=== PATIENT | male | born 1965 | race Caucasian/White ===

== ENCOUNTER 2024-05-02 16:10 | Emergency (ER) | payer OTHER, BC, SELFPAY ==
[2024-05-02] VITALS (7 sets, daily range): BP systolic 116–138; BP diastolic 72–82; PULSE 60–76; RESP 18–20; TEMP 36.6–37.1; O2SAT 99–100; BMI 29.5
--- NOTE | 2024-05-02 16:10 | PC.NURSE ---
trauma alert called
--- NOTE | 2024-05-02 16:16 | PC.NURSE ---
canceled the trauma alert.
--- NOTE | 2024-05-02 16:17 | XR_ITS ---
PROCEDURE INFORMATION: Exam: XR Pelvis Exam date and time: 05/02/2024 5:16 PM Age: 58 years old Clinical indication: Injury or trauma; Fall; Blunt trauma (contusions or hematomas); Bilateral; Pelvic region TECHNIQUE: Imaging protocol: Radiologic exam of the pelvis. Views: 1 or 2 view. COMPARISON: CT ANGIO ABDOMEN PELVIS 05/02/2024 5:14 PM FINDINGS: Bones/joints: Postoperative change involving the lumbar spine. Mild degenerative change. No acute fracture or dislocation. New line Soft tissues: Unremarkable. Organs: Contrast material within the urinary bladder. IMPRESSION: No acute osseous abnormality.
--- NOTE | 2024-05-02 16:17 | XR_ITS ---
PROCEDURE INFORMATION: Exam: XR Chest Exam date and time: 05/02/2024 5:16 PM Age: 58 years old Clinical indication: Injury or trauma; Fall; Blunt trauma (contusions or hematomas) TECHNIQUE: Imaging protocol: Radiologic exam of the chest. Views: 1 view. COMPARISON: CT ANGIO CHEST 05/02/2024 5:14 PM FINDINGS: Lungs: Unremarkable. No consolidation. Pleural spaces: Unremarkable. No pleural effusion. No pneumothorax. Heart/Mediastinum: Unremarkable. No cardiomegaly. Bones/joints: Unremarkable. IMPRESSION: No acute findings.
--- NOTE | 2024-05-02 16:18 | CT_ITS ---
PROCEDURE INFORMATION: Exam: CTA Abdomen and Pelvis With Contrast Exam date and time: 05/02/2024 5:14 PM Age: 58 years old Clinical indication: Injury or trauma; Additional info: Trauma, critical injury suspected TECHNIQUE: Imaging protocol: Computed tomographic angiography of the abdomen and pelvis with contrast. Exam focused on the arteries. 3D rendering (Not supervised by radiologist): MIP and/or 3D reconstructed images were created by the technologist. Radiation optimization: All CT scans at this facility use at least one of these dose optimization techniques: automated exposure control; mA and/or kV adjustment per patient size (includes targeted exams where dose is matched to clinical indication); or iterative reconstruction. Contrast material: ISO 370; Contrast volume: 80 ml; Contrast route: INTRAVENOUS (IV); COMPARISON: CT BONY PELVIS 05/02/2024 5:03 PM FINDINGS: Aorta: No abdominal aortic aneurysm. No dissection. No rupture.. Celiac trunk and mesenteric arteries: No occlusion or significant stenosis. Renal arteries: No occlusion or significant stenosis. Right iliac arteries: No occlusion or significant stenosis. Left iliac arteries: No occlusion or significant stenosis. Liver: No mass. There is no liver laceration present. No cirrhosis. Gallbladder and biliary ducts: Unremarkable. No calcified stones. No ductal dilation. Pancreas: No pancreatic ductal dilation. There is no laceration present. Spleen: There is no splenic laceration present. No splenomegaly. Adrenal glands: Normal. No mass. No laceration. Kidneys and ureters: No hydronephrosis. There is no renal laceration present. Stomach and bowel: Thickening of the wall of the distal ileum with adjacent fat stranding. Mild diffuse thickening of the wall of the colon. Appendix: No evidence of appendicitis. Intraperitoneal space: Unremarkable. No free air. No significant fluid collection. Lymph nodes: Unremarkable. No enlarged lymph nodes. Urinary bladder: Unremarkable. No mass. Reproductive: Unremarkable as visualized. Bones/joints: Postsurgical changes from disc replacements at L4-L5 and L5-S1 impression. Acute fractures of the right L1-L3 transverse processes. . No dislocation. Soft tissues: Tarlov cysts within the sacrum. IMPRESSION: 1. Acute fractures of the right L1-L3 transverse processes. 2. No significant traumatic injury to the abdomen or pelvis. 3. Mild inflammation of the distal ileum and colon.
--- NOTE | 2024-05-02 16:18 | CT_ITS ---
PROCEDURE INFORMATION: Exam: CT Head Without Contrast Exam date and time: 05/02/2024 4:49 PM Age: 58 years old Clinical indication: Injury or trauma; Additional info: Trauma, critical injury suspected TECHNIQUE: Imaging protocol: Computed tomography of the head without contrast. Radiation optimization: All CT scans at this facility use at least one of these dose optimization techniques: automated exposure control; mA and/or kV adjustment per patient size (includes targeted exams where dose is matched to clinical indication); or iterative reconstruction. COMPARISON: No relevant prior studies available. FINDINGS: Brain: Normal. No hemorrhage. Unremarkable white matter. No mass effect. Cerebral ventricles: No ventriculomegaly. Paranasal sinuses: Moderate paranasal sinus disease. Mastoid air cells: Visualized mastoid air cells are well aerated. Bones: No acute calvarial fracture. Facial bones are better evaluated on dedicated exam. Soft tissues: Unremarkable. IMPRESSION: No acute intracranial abnormality.
--- NOTE | 2024-05-02 16:18 | CT_ITS ---
PROCEDURE INFORMATION: Exam: CT Lumbar Spine Without Contrast Exam date and time: 05/02/2024 5:00 PM Age: 58 years old Clinical indication: Injury or trauma; Additional info: Trauma, critical injury suspected TECHNIQUE: Imaging protocol: Computed tomography of the lumbar spine without contrast. Radiation optimization: All CT scans at this facility use at least one of these dose optimization techniques: automated exposure control; mA and/or kV adjustment per patient size (includes targeted exams where dose is matched to clinical indication); or iterative reconstruction. COMPARISON: CT THORACIC SPINE WO CON 05/02/2024 4:57 PM FINDINGS: Bones/joints: Interbody fusion L4-L5 and L5-S1. Vertebral body height and AP alignment is preserved. Mild prevertebral osteophytosis. Low-level facet joint degenerative change. No definite significant central canal stenosis within limitations of technique and artifact. Fractures involving the right transverse processes of L1, L2 and L3 ranging from nondisplaced to mildly displaced. There is large sacral Tarlov cyst with adjacent osseous remodeling. Vasculature: Vascular calcification. Soft tissues: Unremarkable. IMPRESSION: Fractures involving the right transverse processes of L1, L2 and L3 ranging from nondisplaced to mildly displaced.
--- NOTE | 2024-05-02 16:18 | CT_ITS ---
PROCEDURE INFORMATION: Exam: CTA Neck With Contrast Exam date and time: 05/02/2024 5:10 PM Age: 58 years old Clinical indication: Injury or trauma; Additional info: Trauma, critical injury suspected TECHNIQUE: Imaging protocol: Computed tomographic angiography of the neck with contrast. Exam focused on the cervical segments of the vasculature. 3D rendering (Not supervised by radiologist): MIP and/or 3D reconstructed images were created by the technologist. Radiation optimization: All CT scans at this facility use at least one of these dose optimization techniques: automated exposure control; mA and/or kV adjustment per patient size (includes targeted exams where dose is matched to clinical indication); or iterative reconstruction. Contrast material: ISOVUE 370; Contrast volume: 80 ml; Contrast route: INTRAVENOUS (IV); COMPARISON: CT CERVICAL SPINE WO CON 05/02/2024 4:55 PM FINDINGS: Limitations: Limited by artifact arising from metallic dental hardware/dental amalgam. Right common carotid artery: No stenosis. No dissection or occlusion. Right internal carotid artery: No stenosis of the extracranial segment. No dissection or occlusion. Right external carotid artery: No occlusion or stenosis of the origin. Left common carotid artery: No stenosis. No dissection or occlusion. Left internal carotid artery: No stenosis of the extracranial segment. No dissection or occlusion. Left external carotid artery: No occlusion or stenosis of the origin. Right vertebral artery: No stenosis. No dissection or occlusion. Left vertebral artery: No stenosis. No dissection or occlusion. Soft tissues: Normal. No significant soft tissue swelling. Bones/joints: No acute fracture. IMPRESSION: No significant vascular pathology. REFERENCES: NASCET CRITERIA. The degree of stenosis in the cervical segment of the internal carotid artery is based on NASCET criteria. Normal is no stenosis. Mild is less than 50% stenosis. Moderate is 50-69% stenosis. Severe is 70% to 99% stenosis. Total occlusion is no detectable patent lumen.
--- NOTE | 2024-05-02 16:18 | CT_ITS ---
PROCEDURE INFORMATION: Exam: CT Maxillofacial Without Contrast Exam date and time: 05/02/2024 4:51 PM Age: 58 years old Clinical indication: Injury or trauma; Additional info: Trauma, critical injury suspected TECHNIQUE: Imaging protocol: Computed tomography of the face without contrast. Radiation optimization: All CT scans at this facility use at least one of these dose optimization techniques: automated exposure control; mA and/or kV adjustment per patient size (includes targeted exams where dose is matched to clinical indication); or iterative reconstruction. COMPARISON: CT HEAD/BRAIN WO CON 05/02/2024 4:49 PM FINDINGS: Limitations: Limited by artifact arising from metallic dental hardware/dental amalgam. Paranasal sinuses: Moderate paranasal sinus disease. Orbital cavities: No orbital hemorrhage. Bones: No acute facial bone fracture. No dislocation. Soft tissues: Unremarkable. IMPRESSION: No acute facial bone fracture.
--- NOTE | 2024-05-02 16:18 | CT_ITS ---
PROCEDURE INFORMATION: Exam: CTA Head With Contrast, Arteriography Exam date and time: 05/02/2024 5:10 PM Age: 58 years old Clinical indication: Injury or trauma; Additional info: Trauma, critical injury suspected TECHNIQUE: Imaging protocol: Computed tomographic angiography of the head with contrast. Exam focused on the arteries. 3D rendering (Not supervised by radiologist): MIP and/or 3D reconstructed images were created by the technologist. Radiation optimization: All CT scans at this facility use at least one of these dose optimization techniques: automated exposure control; mA and/or kV adjustment per patient size (includes targeted exams where dose is matched to clinical indication); or iterative reconstruction. Contrast material: ISOVUE 370; Contrast volume: 80 ml; Contrast route: INTRAVENOUS (IV); COMPARISON: CT HEAD/BRAIN WO CON 05/02/2024 4:49 PM FINDINGS: ANTERIOR CIRCULATION: Right internal carotid artery: Intracranial segment is patent with no significant stenosis. No aneurysm. Right middle cerebral artery: No occlusion or significant stenosis. No aneurysm. Right anterior cerebral artery: No occlusion or significant stenosis. No aneurysm. Left internal carotid artery: Intracranial segment is patent with no significant stenosis. No aneurysm. Left middle cerebral artery: No occlusion or significant stenosis. No aneurysm. Left anterior cerebral artery: No occlusion or significant stenosis. No aneurysm. POSTERIOR CIRCULATION: Right vertebral artery: No occlusion or significant stenosis. No aneurysm. Left vertebral artery: No occlusion or significant stenosis. No aneurysm. Basilar artery: No occlusion or significant stenosis. No aneurysm. Right posterior cerebral artery: No occlusion or significant stenosis. No aneurysm. Left posterior cerebral artery: No occlusion or significant stenosis. No aneurysm. IMPRESSION: No significant vascular pathology.
--- NOTE | 2024-05-02 16:18 | CT_ITS ---
PROCEDURE INFORMATION: Exam: CTA Chest With Contrast Exam date and time: 05/02/2024 5:14 PM Age: 58 years old Clinical indication: Injury or trauma; Additional info: Trauma, critical injury suspected TECHNIQUE: Imaging protocol: Computed tomographic angiography of the chest with contrast. Exam focused on the arteries. 3D rendering (Not supervised by radiologist): MIP and/or 3D reconstructed images were created by the technologist. Radiation optimization: All CT scans at this facility use at least one of these dose optimization techniques: automated exposure control; mA and/or kV adjustment per patient size (includes targeted exams where dose is matched to clinical indication); or iterative reconstruction. Contrast material: ISOVUE 370; Contrast volume: 80 ml; Contrast route: INTRAVENOUS (IV); COMPARISON: CT ANGIO ABDOMEN PELVIS 05/02/2024 5:14 PM FINDINGS: Pulmonary arteries: Normal. No pulmonary emboli. Aorta: Unremarkable. No aortic aneurysm. No aortic dissection. Lungs: Unremarkable. No consolidation. No masses. Pleural spaces: Unremarkable. No pneumothorax. No pleural effusion. Heart: Unremarkable. No cardiomegaly. No pericardial effusion. Mediastinal space: There no mediastinal hematoma. Lymph nodes: Unremarkable. No enlarged lymph nodes. Bones/joints: No acute fracture. Soft tissues: Unremarkable. IMPRESSION: 1. No evidence for a pulmonary embolism, aortic dissection, aortic aneurysm, or underlying pneumonia. 2. There is no significant traumatic injury seen.
--- NOTE | 2024-05-02 16:18 | CT_ITS ---
PROCEDURE INFORMATION: Exam: CT Cervical Spine Without Contrast Exam date and time: 05/02/2024 4:55 PM Age: 58 years old Clinical indication: Injury or trauma; Additional info: Trauma, critical injury suspected TECHNIQUE: Imaging protocol: Computed tomography of the cervical spine without contrast. Radiation optimization: All CT scans at this facility use at least one of these dose optimization techniques: automated exposure control; mA and/or kV adjustment per patient size (includes targeted exams where dose is matched to clinical indication); or iterative reconstruction. COMPARISON: CT FACIAL BONES WO CON 05/02/2024 4:51 PM FINDINGS: Bones: Vertebral body height and AP alignment is preserved. Mild degenerative change about the dens. There are facet joint degenerative changes. No acute cervical spine fracture. No definite significant central canal stenosis within limitations of technique. Lungs: Lung apices are normal. Pleural spaces: No visible pneumothorax. Soft tissues: Unremarkable. IMPRESSION: No acute cervical spine fracture.
--- NOTE | 2024-05-02 16:18 | CT_ITS ---
PROCEDURE INFORMATION: Exam: CT Thoracic Spine Without Contrast Exam date and time: 05/02/2024 4:57 PM Age: 58 years old Clinical indication: Injury or trauma; Additional info: Trauma, critical injury suspected TECHNIQUE: Imaging protocol: Computed tomography of the thoracic spine without contrast. Radiation optimization: All CT scans at this facility use at least one of these dose optimization techniques: automated exposure control; mA and/or kV adjustment per patient size (includes targeted exams where dose is matched to clinical indication); or iterative reconstruction. COMPARISON: CT CERVICAL SPINE WO CON 05/02/2024 4:55 PM FINDINGS: Bones/joints: Vertebral body height and AP alignment is preserved. No acute thoracic spine fracture. No osseous destruction. Soft tissues: Unremarkable. Pleural spaces: No visible pneumothorax. IMPRESSION: No acute thoracic spine fracture.
--- NOTE | 2024-05-02 16:18 | CT_ITS ---
PROCEDURE INFORMATION: Exam: CT Pelvis Without Contrast, Skeleton Exam date and time: 05/02/2024 5:03 PM Age: 58 years old Clinical indication: Injury or trauma; Additional info: Trauma, critical injury suspected TECHNIQUE: Imaging protocol: Computed tomography of the pelvis without contrast. Exam focused on the skeleton. Radiation optimization: All CT scans at this facility use at least one of these dose optimization techniques: automated exposure control; mA and/or kV adjustment per patient size (includes targeted exams where dose is matched to clinical indication); or iterative reconstruction. COMPARISON: CT LUMBAR SPINE WO CON 05/02/2024 5:00 PM FINDINGS: Vasculature: Vascular calcification. Bones/joints: There is large sacral Tarlov cysts with adjacent osseous remodeling. Cyst measures up to 5.5 cm in cc dimension. Previous fusion L4-L5 and L5-S1. No acute fracture or dislocation. Soft tissues: Small fat containing umbilical hernia. IMPRESSION: No acute osseous abnormality.
[2024-05-02 16:25] LABS: Basophils # 0.1 K/mm3 (0-0.2); Chloride 106 mmol/L (98-107); Eosinophils # 0.4 K/mm3 (0.0-0.4); Eosinophils % 3.7 % (0.1-12.0); Hematocrit 45.6 % (42.0-52.0); Hemoglobin 15.9 g/dL (14.1-18.0); Lymphocytes # 4.5 K/mm3 (0.7-4.5); Lymphocytes % 38.2 % (10-50); Mean Corpuscular HGB Conc 34.9 g/dL (31.8-35.4); Mean Corpuscular Hemoglobin 32.3 pg (27.0-31.2); Mean Corpuscular Volume 92.7 fl (80-94); Monocytes # 0.5 K/mm3 (0.1-1.0); Monocytes % 4.2 % (1.7-9.3); Neutrophils # 6.2 K/mm3 (1.8-7.8); Neutrophils % 52.8 % (37.0-80.0); Platelet Count 308 K/mm3 (142-424); Red Blood Count 4.93 M/mm3 (4.60-6.20); Red Cell Distribution Width 13.8 % (11.5-17.5); White Blood Count 11.8 K/mm3 (4.8-10.8)
[2024-05-02 16:26] LABS: Albumin Level 4.7 g/dl (3.5-5.0); Potassium 3.8 mmoL/L (3.5-5.1); Sodium 140 mmol/L (136-145)
[2024-05-02 16:28] LABS: Alanine Aminotransferase 41 U/L (12-78); Anion Gap 16.8 mEq/L (5-15); Aspartate Amino Transferase 34 U/L (17-59); Blood Urea Nitrogen 17 mg/dl (9-20); Carbon Dioxide 21 mmol/L (22.0-30.0); Creatinine Clearance Estimated 119 mL/min (50-200); Estimated Glomerular Filt Rate 77 ml/min (>60); GFR (African American) 93 ML/MIN (>60)
[2024-05-02 16:29] LABS: Albumin/Globulin Ratio 1.7 (1.1-1.8); Alkaline Phosphatase 57 U/L (38-126); Bilirubin,Total 0.6 mg/dl (0.2-1.3); Calcium 9.7 mg/dl (8.4-10.2); Globulin 2.8 g/dL (1.3-3.2); Glucose 134 mg/dl (74-100); Total Protein,Serum 7.5 g/dl (6.3-8.2)
[2024-05-02] MEDS: MORPHINE 4MG/ML SYRINGE 4 MG IV (16:30)
[2024-05-02] MEDS: ONDANSETRON 4MG/2ML VIAL 4 MG IV ×2 (16:30→19:29)
[2024-05-02] MEDS: SODIUM CHLORIDE 0.9% 10ML FLUSH SYRINGE 10 ML IV (16:30)
--- NOTE | 2024-05-02 16:30 | ED_ITS ---
Discharge Plan Disposition Patient Disposition: Home, Self-Care Condition: Good Prescriptions Prescriptions: New hydrocodone-acetaminophen 5-325 mg tablet 1 tab PO Q8H PRN (Reason: pain) Qty: 12 0RF ketorolac 10 mg tablet 10 mg PO Q8H PRN (Reason: pain) 3 Days Qty: 12 0RF lidocaine [Lidoderm] 5 % adhesive patch,medicated 1 patch topical DAILY Qty: 15 0RF Rx Instructions: leave on most painful area for up to 12 hrs methocarbamol 750 mg tablet 750 mg PO Q8H PRN (Reason: pain) Qty: 20 0RF ondansetron 4 mg tablet,disintegrating 4 mg PO Q8H PRN (Reason: nausea and vomiting) 4 Days Qty: 12 0RF senna 8.6 mg capsule 8.6 mg PO HS PRN (Reason: constipation) Qty: 30 0RF Referrals Follow up/Referrals: Noble Woods MD [Primary Care Provider] - See instructions Activity Restrictions/Add. Instructions Additional Instructions/Restrictions: You were evaluated in the emergency department today. Please follow-up outpatient with your primary care provider. I also have arranged outpatient follow-up with spine for you. occupational rehabilitation aide your prescription for pain medication and take as needed for severe pain. Toradol is an NSAID, so do not take ibuprofen or other NSAIDs with this medication. [place] contains acetaminophen, so make sure you are not exceeding 3 g of acetaminophen or Tylenol in 1 day. Alternatively, you may take Tylenol and ibuprofen every 4-6 hours at home as needed for pain. I have also provided you with a mild muscle relaxer, Robaxin. I also provided you with Zofran in case medications cause nausea and vomiting as well as send in case the medications cause constipation. [facility] should be in contact with you to help arrange an appointment next week for follow-up with orthospine. I have provided them with your information, and we have provided you with a disc with imaging. Keep your scalp wound clean and dry. Krystal need to be removed in 8 to 10 days. Do not submerge under any water. Return to the emergency department for new or worsening symptoms, such as significant worsening of pain, new numbness or tingling, urinary incontinence, fecal incontinence, or other concerns. Clinical Impressions Clinical Impression: Lumbar transverse process fracture, Hematoma of scalp, Laceration of scalp, Injury resulting from fall from height Stand Alone Forms Stand Alone Forms: Work/School Release Instructions Patient Instructions: DI for Vertebral Fracture Print Language Print Language: Polish Discharge ED Provider: Devora Cook General Adult HPI General Stated complaint: fall Time Seen by Provider: 05/02/24 16:17 History of Present Illness HPI narrative: This patient is a 58-year-old with a history of prior spine surgery, hypertension, and Crohn's disease not on immune modulators presenting to the emergency department for evaluation with concern for traumatic injuries from a fall from about 12 feet high. Patient was in the scaffolding's of a [employer] shop when he lost his balance and fell about 12 feet. He hit the left side of his head but did not lose consciousness. He has left-sided facial pain, laceration to his left head, low back pain, right florez pain. No vision changes, numbness, tingling, chest pain, abdominal pain, or other concerns. He arrives POV and has been ambulatory since, though he has pain with walking and feels nauseated if he tries to walk. No blood thinners or aspirin. He was well prior to the fall. Related Data Previous Rx's ?Medication ?Instructions ?Recorded hydrocodone 5 mg-acetaminophen 325 1 tab PO Q8H PRN pain #12 tabs 05/02/24 mg tablet ketorolac 10 mg tablet 10 mg PO Q8H PRN pain 3 days #12 05/02/24 tabs lidocaine 5 % topical patch 1 patch topical DAILY #15 ea 05/02/24 (Lidoderm) methocarbamol 750 mg tablet 750 mg PO Q8H PRN pain #20 tabs 05/02/24 ondansetron 4 mg disintegrating 4 mg PO Q8H PRN nausea and 05/02/24 tablet vomiting 4 days #12 tabs sennosides 8.6 mg capsule (senna) 8.6 mg PO HS PRN constipation #30 05/02/24 caps Allergies Allergy/AdvReac Type Severity Reaction Status Date / Time No Known Allergies Allergy Verified 05/02/24 16:26 [facility] Disclaimer: The information contained in this section may have been updated after the patient was seen, as this information can be updated by other users. Social History Smoking Status: Never smoker alcohol intake: never current occupational status: employed ROS Obtained: Yes All systems reviewed & no additional complaints except as documented Physical Exam General General appearance: alert and in no apparent distress Head Head exam: other (Left temporal tenderness to palpation, swelling. Laceration to the left parietal scalp. Hematoma to left parietal scalp. No appreciable step-offs or deformities) Eye Eye exam: Present normal appearance, PERRL and EOMI ENT ENT exam: Present normal exam, normal oropharynx, mucous membranes moist and normal external ear exam Neck Neck exam: Present trachea midline and other (C-collar in place); Absent tenderness Chest Chest inspection: Present normal inspection and symmetric chest wall rise; Absent tenderness Respiratory Respiratory exam: Present normal lung sounds bilaterally; Absent respiratory distress, wheezes, stridor or accessory muscle use Cardiovascular Cardiovascular exam: Present regular rate and normal rhythm Abdominal Exam Abdominal exam: Present soft; Absent distention, tenderness, guarding, rebound or rigidity Extremities Exam Extremities exam: Present full ROM, tenderness, normal capillary refill and other (Tenderness and abrasion to the right anterior lower leg); Absent edema Back Exam Back exam: Present tenderness (Low back. Scattered abrasions and bruising) Neurological Exam Neurological exam: Present alert, oriented X3 and CN II-XII intact; Absent normal gait (Antalgic gait) or motor sensory deficit Psychiatric Psychiatric exam: Present normal affect and normal mood Skin Skin exam: Present warm and dry Medical Decision Making Medical Records Medical records reviewed: Yes I reviewed the patient's medical records. Screening: Per USPSTF and CDC recommendations, given the prevalence of disease in our region, it is our hospital?s policy to screen for HIV and viral Hepatitis for all patients aged 18 and over and those with ongoing risk factors. Mac Inquiry Pt receiving controlled substance: Yes Mac was queried for this patient: Yes Risks and benefits of using a controlled substance: were discussed with pt by me Vital Signs: 05/02/24 16:14 05/02/24 16:17 05/02/24 16:30 Temperature 97.8 F Temperature Source Oral Pulse Rate 60 Pulse Rate [Left Radial] 60 Respiratory Rate 18 Blood Pressure 138/78 116/73 Blood Pressure [Right Arm] 116/73 Blood Pressure Mean Blood Pressure Mean [Right Arm] 87 Blood Pressure Source Manual Cuff/ Auscultation 02 Sat by Pulse Oximetry 99 99 Oxygen Delivery Method Room Air 05/02/24 18:01 05/02/24 18:30 05/02/24 19:00 Temperature Temperature Source Pulse Rate 60 76 Pulse Rate [Left Radial] Respiratory Rate Blood Pressure 122/77 135/82 126/72 Blood Pressure [Right Arm] Blood Pressure Mean 84 Blood Pressure Mean [Right Arm] Blood Pressure Source 02 Sat by Pulse Oximetry 99 99 Oxygen Delivery Method 05/02/24 19:42 Temperature 98.7 F Temperature Source Pulse Rate 68 Pulse Rate [Left Radial] Respiratory Rate 20 Blood Pressure 126/72 Blood Pressure [Right Arm] Blood Pressure Mean Blood Pressure Mean [Right Arm] Blood Pressure Source 02 Sat by Pulse Oximetry Oxygen Delivery Method Room Air Lab Data Lab results reviewed: Yes I reviewed the patient's lab results. Lab Results 05/02/24 16:15: WBC 11.8 H, RBC 4.93, Hgb 15.9, Hct 45.6, MCV 92.7, MCH 32.3 H, MCHC 34.9, RDW 13.8, Plt Count 308, MPV 7.0 L, Neut % (Auto) 52.8, Lymph % (Auto) 38.2, [place] % (Auto) 4.2, Eos % (Auto) 3.7, Baso % (Auto) 1.0, Neut # (Auto) 6.2, Lymph # (Auto) 4.5, [place] # (Auto) 0.5, Eos # (Auto) 0.4, Baso # (Auto) 0.1, PT 10.7, INR 0.95, APTT 23.1, Sodium 140, Potassium 3.8, Chloride 106, Carbon Dioxide 21 L, Anion Gap 16.8 H, BUN 17, Creatinine 1.00, Estimated Creat Clear 119, Estimated GFR 77, Est GFR ( Amer) 93, Glucose 134 H, Calcium 9.7, Total Bilirubin 0.6, AST 34, ALT 41, Alkaline Phosphatase 57, Total Protein 7.5, Albumin 4.7, Globulin 2.8, Albumin/Globulin Ratio 1.7 05/02/24 18:20: Urine Color Yellow, Urine Appearance Clear, Urine pH 6.5, Ur Specific [place] 1.015, Urine Protein Negative, Urine Glucose (UA) Negative, Urine Ketones Negative, Urine Blood Negative, Urine Nitrate Negative, Urine Bilirubin Negative, Urine Urobilinogen 0.2, Ur Leukocyte Esterase Negative, Urine RBC None, Urine WBC None, Ur Squamous Epith Cells None, Urine Bacteria None 05/02/24 16:15 05/02/24 16:15 Orders (Tests/Meds): ED MEDICATIONS Discontinued Medications Generic Name Dose Route Start Last Admin Trade Name Ned PRN Reason Stop Dose Admin Bacitracin 1 each 05/02/24 18:43 05/02/24 19:28 Bacitracin Oint 0.9gm Udp TP 05/02/24 18:44 1 each ONCE ONE Administration Iopamidol 160 ml 05/02/24 17:13 05/02/24 17:14 Iopamidol-370 (76%);100ml Bottle IV 05/02/24 17:14 160 ml ONCE ONE Administration Ketorolac Tromethamine 15 mg 05/02/24 18:33 05/02/24 18:43 Ketorolac 30mg/Ml Vial IV 05/02/24 18:34 15 mg ONCE ONE Administration Lidocaine 1 each 05/02/24 18:35 05/02/24 18:44 Lidocaine 5% Transdermal Patch TP 05/02/24 18:36 1 each ONCE ONE Administration Methocarbamol 500 mg 05/02/24 19:26 05/02/24 19:29 Methocarbamol 500mg Tablet PO 05/02/24 19:27 500 mg ONCE ONE Administration Morphine Sulfate 4 mg 05/02/24 16:18 05/02/24 16:30 Morphine 4mg/Ml Syringe IV 05/02/24 16:19 4 mg ONCE ONE Administration Ondansetron HCl 4 mg 05/02/24 16:18 05/02/24 16:30 Ondansetron 4mg/2ml Vial IV 05/02/24 16:19 4 mg ONCE ONE Administration Ondansetron HCl 4 mg 05/02/24 19:26 05/02/24 19:29 Ondansetron 4mg/2ml Vial IV 05/02/24 19:27 4 mg ONCE ONE Administration Oxycodone HCl 5 mg 05/02/24 18:33 05/02/24 18:43 Oxycodone 5mg Immediate Release Tablet PO 05/02/24 18:34 5 mg ONCE ONE Administration Sodium Chloride 10 ml 05/02/24 16:17 05/02/24 16:30 Sodium Chloride 0.9% 10ml Flush Syringe IV 06/01/24 16:16 10 ml NEEDED PRN Administration Maintain IV Site Sodium Chloride 80 ml 05/02/24 17:13 05/02/24 17:14 0.9 % Sodium Chloride 50 Ml Vial IV 05/02/24 17:14 80 ml ONCE ONE Administration Sodium Chloride 10 ml 05/02/24 17:13 05/02/24 17:14 Sodium Chloride 0.9% 10ml Syr (Rad Only) IV 06/01/24 17:12 10 ml NEEDED PRN Administration Maintain IV Site ORDERS Category Date Time Status CT angio abdomen pelvis Stat Cat Scan 05/02/24 16:[address] angio chest - dissection Stat Cat Scan 05/02/24 16:[address] angio head Stat Cat Scan 05/02/24 16:[address] angio neck Stat Cat Scan 05/02/24 16:[address] bony pelvis Stat Cat Scan 05/02/24 16:[address] cervical spine wo con Stat Cat Scan 05/02/24 16:[address] facial bones wo con Stat Cat Scan 05/02/24 16:[address] head/brain wo con Stat Cat Scan 05/02/24 16:[address] lumbar spine wo con Stat Cat Scan 05/02/24 16:[address] thoracic spine wo con Stat Cat Scan 05/02/24 16:18 Completed Ankle XR -Right minimum 3 Views [XR ankle RT min 3V] Exams 05/02/24 16:43 Completed Stat POCUS Point of Care (ER Only) Stat Exams 05/02/24 16:10 Taken Tibia/fibula XR right 2 views [XR tibia fibula RT 2V] Exams 05/02/24 16:43 Completed Stat XR chest portable Stat Exams 05/02/24 16:17 Completed XR pelvis 1-2V Stat Exams 05/02/24 16:17 Completed Activated Partial Thrombo Time Stat Lab 05/02/24 16:15 Completed Complete Blood Count Auto Diff Stat Lab 05/02/24 16:15 Completed Comprehensive Metabolic Panel Stat Lab 05/02/24 16:15 Completed Prothrombin Time INR Stat Lab 05/02/24 16:15 Completed Urinalysis and Microscopic Stat Lab 05/02/24 18:20 Completed Medical Decision Narrative: In summary, this patient is a 58-year-old male presenting to the Emergency Department for evaluation of fall from 12 feet high. Differential diagnoses considered include but are not limited to head trauma, chest trauma, abdominal trauma, polytrauma. Ruling out the most morbid conditions drove assessment. It should be noted patient's history includes hypertension which may or may not be at goal therapy. This complicates all aspects of care by increasing patient's risk for morbidity. The patient ambulated into the emergency department, though with antalgic gait. On exam, he has left-sided head injury, low back tenderness, right florez tenderness. He is hemodynamically stable. He is neurovascularly intact in all 4 extremities and is neurologically intact. He has a laceration to the left scalp. He is up-to-date on tetanus with last tetanus shot in 2021. I performed bedside E FAST exam which was negative. Unfortunately, our ultrasound did not save images. Workup included trauma labs and trauma CT scans with contrast. Patient was given IV morphine and Zofran for symptomatic improvement of pain. I independently interpreted x-ray prior to the radiologist read and noted no acute fracture. Please see their read for final interpretation. Labs were obtained that demonstrated mild leukocytosis in the setting of trauma. Labs are otherwise reassuring. CT scans demonstrated fractures of the L1, 2, and 3 transverse processes but no other acute traumatic injury. He did have mild colon inflammation in the setting of Crohn's disease, but he denies any abdominal pain or other complaints. He already has close follow-up outpatient arranged for this with scope planned Saturday. His scalp laceration was repaired with krystal after thorough irrigation. He was given instructions for wound care. I called for spine consult to help arrange outpatient follow-up given his spine fractures. He is neurologically intact. He was given oral oxycodone, IV Toradol, topical Lidoderm patch for symptomatic improvement of pain. On reassessment, the patient jorge neurologically intact. I had an interactive discussion with Dr. Ledesma with orthopedic spine as well as Dr. Eubanks the transfer center at who advised they would help arrange outpatient follow-up with the patient over the next 2 weeks. Patient was notified of this and provided with a disc with imaging. He was able to ambulate throughout the emergency department out significant issue. Ultimately based on reassuring workup and exam, I feel it is appropriate for discharge home with instructions for wound care, close follow-up with spine, and very strict return precautions. He was discharged with prescription for [place] to take as needed for severe pain. Strict return precautions were given and he was discharged after all questions were answered. Procedures Risk/Benefits of Procedure(s) Were Explained: Yes Laceration Laceration 1: Site: scalp Side (If applicable): left Size (cm): 3 Description: flap Depth: simple, single layer Pre-repair: wound explored, irrigated extensively and deep structures intact Skin layer closed with: other (krystal x 3) Limited Ultrasound Findings:: Limited EFAST ultrasound Indication: Blunt trauma Views: [LUQ, RUQ, Pelvis, Limited Cardiac, Limited Thoracic] Interpretation: Peritoneal Free Fluid: Absent Pericardial effusion: Absent Right thoracic free Fluid: Absent Left thoracic Free Fluid: Absent Right lung pneumothorax: Absent Left Lung pneumothorax: Absent Impression: Negative EFAST ultrasound Images were not saved to permanent archive The study was technically adequate CPT 83656-44 (limited cardiac) 77903-03 (limited abdominal) 81946-66 (chest) This study was performed by me, and I personally interpreted all images/videos. Based on my clinical judgement, these images were adequate and did not necessitate further imaging. Critical Care Critical Care Time Critical Care Time: No
--- NOTE | 2024-05-02 16:43 | XR_ITS ---
PROCEDURE INFORMATION: Exam: XR Right Ankle Exam date and time: 05/02/2024 5:16 PM Age: 58 years old Clinical indication: Injury or trauma; Fall; Blunt trauma; Ankle; Right; Additional info: Fall, pain TECHNIQUE: Imaging protocol: Radiologic exam of the right ankle. Views: 3 or more views. COMPARISON: CR XR ANKLE RT MIN 3V 05/02/2024 5:16 PM FINDINGS: Bones/joints: Normal. Soft tissues: Normal. IMPRESSION: No acute findings.
--- NOTE | 2024-05-02 16:43 | XR_ITS ---
PROCEDURE INFORMATION: Exam: XR Right Tibia and Fibula Exam date and time: 05/02/2024 5:16 PM Age: 58 years old Clinical indication: Injury or trauma; Fall; Blunt trauma; Lower leg; Right; Additional info: Fall, pain TECHNIQUE: Imaging protocol: Radiologic exam of the right tibia and fibula. Views: 2 views. COMPARISON: CR XR ANKLE RT MIN 3V 05/02/2024 5:16 PM FINDINGS: Bones/joints: Normal. Soft tissues: Normal. IMPRESSION: No acute findings.
--- NOTE | 2024-05-02 16:45 | HMH.ITSTN ---
GFR completion/results were overrode for the use of contrast media by the Physician on a risk vs. benefit situation with this patient.
--- OUTSIDE RECORDS SUMMARY | 2024-05-02 16:45 | XMS_ITS ---
Author Organization [facility] Address [address] [facility] [address] [place] [id number] Care Team Providers Care Toe Puncher Name Role Phone Noble Woods Primary Care Provider ALLERGIES Allergen (clinical drug ingredient) Drug/Non Drug Allergy documented on EMR Reaction Allergy Type Onset Date Status morphine Morphine Unknown Drug Allergy Active REASON FOR VISIT 6 month f/u MEDICATIONS Medication SIG (Take, Route, Frequency, Duration) Notes Start Date End Date Status amLODIPine Besylate 10 MG 1 tablet Orall y Once a day for 90 days 10/02/2023 Active Sildenafil Citrate 20 MG 1 tablet Orally Once a day for 30 day(s) Active IMMUNIZATIONS Vaccine Route Administration Date Status Comme nts Fluzone Quad (6months&older) IM Intramuscular 04/02/2024 Administered VITAL SIGNS Weight 238.6 lbs 04/02/2024 Blood pressure systolic 110 mm Hg 04/02/20 Blood pressure diastolic 70 mm Hg 024 Heart Rate 74 /min 04/02/2024 BMI 30.63 kg/m2 04/02/2024 Height 74 in 04/02/2024 Encounters Encounter Location Date Provider Diagnosis [facility] [address] [place] [phone] 04/02/2024 Noble Woods Primary hypertension I10 and Encounter for immunization Z23 ASSESSMENTS Encounter Date Diagnosis Assessment Notes Treatment Notes Treatment Clinical Notes 04/02/2024 Primary hypertension (ICD-10 - I10) 04/02/2024 Encounter for immunization (ICD-10 - Z23) PLAN OF TREATMENT Medication Medication Name Sig Start Date Stop Date Notes amLODIPine Besylate 10 MG 1 tablet Orall y Once a day for 90 days 10/02/2023 Next Appt Details Follow Up: 6 Months, Reason: Provider Name:Noble uribe, 10/01/2024 09:00:00 AM, [address], [address], [place], [phone], Progress Notes * Examination Category Sub-Category Detail Notes Cardiology Lungs: clear, no rales or wheezes Heart sounds: RRR, normal S1, S2 Extremities: no leg edema General Appearance: pleasant, NAD History and Physical Notes * HPI (History of Present Illness) Category Sub-Category Detail Notes Cardiology Blood Pressure Elevated Pt here for 6 mo f/u on hypertension, states he is doing well and does not have any concerns
--- OUTSIDE RECORDS SUMMARY | 2024-05-02 16:46 | XMS_ITS ---
Author Organization [facility] Address [facility] [facility] [address] [place] [phone] Care Team Providers Care Laborer Heading Name Role Phone Noble Woods Primary Care Provider [phone] REASON FOR VISIT Test Results* Encounters Encounter Location Date Provider Diagnosis [facility] [address] [place] [phone] 10/03/2023 Noble Woods PLAN OF TREATMENT Next Appt Details Provider Name:Noble uribe, 10/01/2024 09:00:00 AM, [address], [address], [place], [phone],
--- OUTSIDE RECORDS SUMMARY | 2024-05-02 16:46 | XMS_ITS | Patient Health Record ---
[facility] Address [address] [facility] [address] [place] [id number] Care Team Providers Care Radiation Control Worker Name Role Phone Noble Woods Primary Care Provider ALLERGIES Allergen (clinical drug ingredient) Drug/Non Drug Allergy documented on EMR Reaction Allergy Type Onset Date Status morphine Morphine Unknown Drug Allergy Active RESULTS Component Value Reference Range Notes CBC Fingerstick (in house) Reviewed date:10/30/2023 11:47:20 AM Interpretation: Performing Lab: Notes/Report: wbc 9.5 3.5 - 10 lym 30.4 15 - 50 mid 7.0 2 - 15 gran 62.6 35 - 80 rbc 5.20 3.5 - 5.5 hgb 16.2 11.5 - 16.5 hct 49.3 35 - 55 mcv 94.8 75 - 100 mch 31.2 25 - 35 mchc 32.9 31 - 38 plat 197 100 - 400 P-Microalbumin/Creatinine, R andom Urine Sample Reviewed date:10/03/2023 11:17:10 AM Interpretation:Normal Performing Lab: Notes/Report: Test performed by [facility] [address] [place] [address] , [place] [address] Wero Bowman MD, Hostess Party Sales Representative CLIA: [id number] Albumin/Creatinine Ratio, Urine 11 0-30 ug/mg Microalbumin, Urine, Random 1.8 Creatinine, Urine 160.9 P-TSH reflex to FT4 Reviewed date:10/03/2023 11:17:10 AM Interpretation:Normal Performing Lab: Notes/Report: Test performed by [facility] [address] [place] [address] , [place] [address] Wero Bowman MD, Hostess Party Sales Representative CLIA: [id number] TSH reflex to FT4 1.75 0.43-5.25 mU/L P-PSA Reviewed date:10/03/2023 11:17:10 AM Interpretation:Normal Performing Lab: Notes/Report: Test performed by [facility] [address] [place] [address] [place] [address] Wero Bowman MD, Hostess Party Sales Representative CLIA: [id number] PSA 0.60 <4.00 ng/mL Please note this is an ultrasensitive PSA assay with a lower limit of detection of 0.014 ng/mL. This test is performed by the [employer] ECLIA methodology. Values obtained with different assay methods or kits cannot be directly compared. P-Lipid Panel Reviewed date:10/03/2023 11:17:10 AM Interpretation:Normal Performing Lab: Notes/Report: Test performed by [facility] [address] [place] [address] Wero Bowman MD, Hostess Party Sales Representative CLIA: [id number] Cholesterol 167 <200 mg/dL Triglycerides 81 <150 mg/dL HDL Cholesterol 53 >39 mg/dL Cholesterol / HDL Ratio 3.15 0.00-4.99 Ratio Non-HDL Cholesterol 114 <130 mg/dL LDL Cholesterol (Calculation) 98 <130 mg/dL LDL Cholesterol Levels* Less than 100 mg/dL Optimal 100 to 129 mg/dL Near Optimal/ Above Optimal 130 to 159 mg/dL Borderline High 160 to 189 mg/dL High 190 mg/dL and above Very High * Categories as recommended by the 2004 ATPIII guidelines LDL/HDL Ratio 1.8 <3.3 Ratio LDL Cholesterol Patient History Test Date: 10/02/2023 LDL Results: 98 Units: mg/dL % Change: - P-Basic Metabolic Panel (BMP ) Reviewed date:10/03/2023 11:17:10 AM Interpretation:co2 21, gluc 107 Performing Lab: Notes/Report: Test performed by [facility] [address] [place] [address] , [address], [place] [address] Wero Bowman MD, Hostess Party Sales Representative CLIA: [id number] Sodium 139 135-145 mEq/L Potassium 4.4 3.5-5.3 mEq/L Chloride 105 97-108 mEq/L CO2 21 22-32 mEq/L Glucose 107 65-99 mg/dL BUN 13 6-20 mg/dL Creatinine 0.84 0.70-1.30 mg/dL Calcium 9.2 8.6-10.4 mg/dL eGFR by Creatinine 101 >59 mL/min/1.73m2 REASON FOR REFERRAL No Information MEDICATIONS Medication SIG (Take, Route, Frequency, Duration) Notes Start Date End Date Status amLODIPine Besylate 10 MG 1 tablet Orall y Once a day for 90 days 10/02/2023 Active Sildenafil Citrate 20 MG 1 tablet Orally Once a day for 30 day(s) Active IMMUNIZATIONS Vaccine Route Administration Date Status Comme nts Fluzone Quad (6months&older) Unknown 03/22/2023 Administered Fluzone Quad (6months&older) IM Intramuscular 04/02/2024 Administered SOCIAL HISTORY Sex Assigned At : Social History Observation Description Sex Assigned At Unknown PROBLEMS Problem Type ICD Code Onset Dates Problem Status W/U Status Risk SNOMED Code Notes Problem Primary hypertension (I10) Active confirmed [id number] VITAL SIGNS Heart Rate 74 /min 04/02/2024 Blood pressure diastolic 70 mm Hg 04/02/2024 Height 74 in 04/02/2024 Blood pressure systolic 110 mm Hg 04/02/2024 Weight 238.6 lbs 04/02/2024 BMI 30.63 kg/m2 04/02/2024 Encounters Encounter Location Date Provider Diagnosis [facility] [address] [facility] [address] [place] [id number] 10/02/2023 Nobleronald Woods Primary hypertension I10 and Prostate cancer screening Z12.5 [facility] [address] [facility] [address] [place] [id number] 10/03/2023 Noble Milroy [facility] [address] [facility] [address] [place] [id number] 10/30/2023 Nobleronald Woods URI, acute J06.9 [facility] [address] [facility] [address] [place] [id number] 04/02/2024 Nobleronald LyonsMilroy Primary hypertension I10 and Encounter for immunization Z23 ASSESSMENTS Encounter Date Diagnosis Assessment Notes Treatment Notes Treatment Clinical Notes 04/02/2024 Encounter for immunization (ICD-10 - Z23) 04/02/2024 Primary hypertension (ICD-10 - I10) 10/30/2023 URI, acute (ICD-10 - J06.9) 10/02/2023 Prostate cancer screening (ICD-10 - Z12.5) 10/02/2023 Primary hypertension (ICD-10 - I10) PLAN OF TREATMENT Next Appt Details Provider Name:Noble Rock Nick ry, 10/01/2024 09:00:00 AM, [address] [facility] [address] [facility], [address], [place], [phone], Insurance Providers Payer Name Payer Address Payer Phone Subscriber Number Group Number Insured Name Patient Relationship to Insured Coverage Start Date Coverage End Date [employer] [address] [place] [address] [id number] Laith Leal Self - patient is the insured MEDICAL (GENERAL) HISTORY Medical History History ICD Code Followed at the [facility] Hypertension Allergic Rhinitis Crohn's disease, Dx 2022 Lumbar Disc Herniation, s/p surgical rep air 2009 Erectile dysfunction Tinnitus sleep apnea, Dx: 2023 Surgical History Surgery Date(Month/Year) L4-5, L5-S1 Disc Replacement 2009 Colonoscopy, Multiple
--- OUTSIDE RECORDS SUMMARY | 2024-05-02 16:46 | XMS_ITS ---
Author Organization [facility] Address [address] [facility] [address] [place] [id number] Care Team Providers Care Diversified Crops Supervisor Name Role Phone Noble Woods Primary Care [...] - 38 plat 197 100 - 400 REASON FOR VISIT possible ear infection MEDICATIONS Medication SIG (Take, Route, Frequency, Duration) Notes Start Date End Date Status Zithromax Z-Nicho 250 MG as directed Orall y once daily for 5 day(s) 10/30/2023 Active Protonix 20 MG 1 tablet Orally Once a day for 30 day(s) Not-Taking Sildenafil Citrate 20 MG 1 tablet Orally Once a day for 30 day(s) Active amLODIPine Besylate 10 MG 1 tablet Orally Once a day for 90 days 10/02/2023 Active VITAL SIGNS Weight 241 lbs 10/30/2023 Blood pressure systolic 122 mm Hg 10/30/19 24 Blood pressure diastolic 70 mm Hg 024 Heart Rate 82 /min 10/30/2023 Height 74 in 10/30/2023 BMI 30.94 kg/m2 10/30/2023 Encounters Encounter Location Date Provider Diagnosis [facility] [address] [facility] [address] [place] [id number] 10/30/2023 Noble Woods URI, acute J06.9 ASSESSMENTS Encounter Date Diagnosis Assessment Notes Treatment Notes Treatment Clinical Notes 10/30/2023 URI, acute (ICD-10 - J06.9) PLAN OF TREATMENT Medication Medication Name Sig Start Date Stop Date Notes Zithromax Z-Nicho 250 MG as directed Orall y once daily for 5 day(s) 10/30/2023 Next Appt Details Follow Up: prn, Reason: Provider Name:Noble Romero ry, 10/01/2024 09:00:00 AM, [address] [facility] [address] [facility], [address], [place], [phone], Progress Notes * Examination Category Sub-Category Detail Notes ENT/Respiratory Oral cavity : erythema without exudate on pharynx Ears: auditory canals norm al bilaterally, cerumen present (right more than left) TM's WNL Neck : no cervical lymphade nopathy Heart : RRR, normal S1 S2 Lungs: clear to auscultatio n bilaterally General Appearance: NAD Nose : nares patent, clear rhinorrhea Eyes: PERRLA, sclera clear History and Physical Notes * HPI (History of Present Illness) Category Sub-Category Detail Notes ENT/respiratory ear pain Pt complains of lt ear pain for 4 days, states ear feels like it is full of fluid
[2024-05-02 17:02] LABS: Activated Partial Thrombo Time 23.1 seconds (22.8-30.6); INR 0.95 (0.9-1.1); Prothrombin Time 10.7 seconds (10.1-12.5)
[2024-05-02] MEDS: IOPAMIDOL-370 (76%);100ML BOTTLE 160 ML IV (17:14)
[2024-05-02] MEDS: 0.9 % SODIUM CHLORIDE 50 ML VIAL 80 ML IV (17:14)
[2024-05-02] MEDS: SODIUM CHLORIDE 0.9% 10ML SYR (RAD ONLY) 10 ML IV (17:14)
--- NOTE | 2024-05-02 17:53 | PC.NURSE ---
called Rad to power share to [facility]
--- NOTE | 2024-05-02 18:07 | PC.NURSE ---
calling [facility] at this time.
[2024-05-02 18:33] LABS: Appearance,Urine CLEAR (Clear); Bilirubin,Urine Negative (Negative); Blood, Urine Negative (Negative); Color,Urine YELLOW (Yellow); Glucose,Urine (UA) Negative (Negative); Ketones,Urine Negative (Negative); Leukocyte Esterase,Urine Negative (Negative); Microscopic, Urine URINE MICROSCOPIC (MICROSCOPIC); Nitrate,Urine Negative (Negative); PH,Urine 6.5 (5.0-8.5); Protein,Urine Negative (Negative); Specific Gravity, Urine 1.015 (1.005-1.030); Urobilinogen,Urine 0.2 EU/dl (0.2)
[2024-05-02] MEDS: KETOROLAC 30MG/ML VIAL 15 MG IV (18:43)
[2024-05-02] MEDS: OXYCODONE 5MG IMMEDIATE RELEASE TABLET 5 MG PO (18:43)
[2024-05-02] MEDS: LIDOCAINE 5% TRANSDERMAL PATCH 1 EACH TP (18:44)
[2024-05-02] MEDS: BACITRACIN OINT 0.9GM UDP 1 EACH TP (19:28)
[2024-05-02] MEDS: METHOCARBAMOL 500MG TABLET 500 MG PO (19:29)
== END 2024-05-02 19:50 | disposition home or self-care (01) ==
PROVIDERS: Emergency Provider Emergency Medicine; PCP Family Medicine
DX: M54.50 Low back pain, unspecified (principal); M79.661 Pain in right lower leg; S01.01XA Laceration without foreign body of scalp, initial encounter; S32.009A Unspecified fracture of unspecified lumbar vertebra, initial encounter for closed fracture; W17.89XA Other fall from one level to another, initial encounter; Y93.89 Activity, other specified; Y92.9 Unspecified place or not applicable
CPT/HCPCS: 70450; 70486; 70496; 70498; 71045; 71275; 72125; 72128; 72131; 72170; 72192; 73590; 73610; 74174; 80053; 81001; 85025; 85610; 85730; 96374; 96375; 99285; J1885; J2270; J2405; Q9967

== ENCOUNTER 2024-05-15 14:33 | Emergency (ER) | payer OTHER, SELFPAY ==
[2024-05-15 14:34] VITALS: BP 113/86; PULSE 90; RESP 18; O2SAT 95; BMI 29.5
[2024-05-15 14:40] VITALS: BMI 27.3
--- NOTE | 2024-05-15 14:42 | ED_ITS ---
Discharge Plan Disposition Patient Disposition: Home, Self-Care Condition: Good Prescriptions Prescriptions: New methocarbamol 750 mg tablet 750 mg PO Q8H PRN (Reason: muscle spasm) Qty: 15 0RF No Action hydrocodone-acetaminophen 5-325 mg tablet 1 tab PO Q8H PRN (Reason: pain) Qty: 12 0RF ketorolac 10 mg tablet 10 mg PO Q8H PRN (Reason: pain) 3 Days Qty: 12 0RF lidocaine [Lidoderm] 5 % adhesive patch,medicated 1 patch topical DAILY Qty: 15 0RF Rx Instructions: leave on most painful area for up to 12 hrs methocarbamol 750 mg tablet 750 mg PO Q8H PRN (Reason: pain) Qty: 20 0RF ondansetron 4 mg tablet,disintegrating 4 mg PO Q8H PRN (Reason: nausea and vomiting) 4 Days Qty: 12 0RF senna 8.6 mg capsule 8.6 mg PO HS PRN (Reason: constipation) Qty: 30 0RF Referrals Follow up/Referrals: Noble Woods MD [Primary Care Provider] - See instructions Activity Restrictions/Add. Instructions Additional Instructions/Restrictions: As discussed please follow-up with your primary care provider, please return to ED if symptoms worsen. Clinical Impressions Clinical Impression: Encounter for medical assessment, Encounter for removal of indy Instructions Patient Instructions: DI for Laceration Repair Print Language Print Language: Kinyarwanda Discharge ED Provider: Da Weinberg General Adult HPI General Chief complaint: Wound/Laceration Stated complaint: staple removal Time Seen by Provider: 05/15/24 14:41 History of Present Illness HPI narrative: 58-year-old male with past medical history of hypertension presented to ED for staple removal after he had a scalp laceration from a 12 foot fall 05/02. Nursing staff initially was removing indy without patient needing to be seen by ED physician however once stable unable to be removed. I was asked to evaluate and on inspection noted that staple had shifted to where it was unable to be fully grasped by tools to remove safely. Patient checked into ED at that time to be given topical anesthetic to allow for better manipulation to get staple removed. Patient denies other symptoms or complaints beyond some ongoing back spasms from L1-L2-L3 transverse process fractures that also occurred at time of fall. Patient has requested refill of Robaxin due to this. No other symptoms or concerns. Related Data Previous Rx's ?Medication ?Instructions ?Recorded hydrocodone 5 mg-acetaminophen 325 1 tab PO Q8H PRN pain #12 tabs 05/02/24 mg tablet ketorolac 10 mg tablet 10 mg PO Q8H PRN pain 3 days #12 05/02/24 tabs lidocaine 5 % topical patch 1 patch topical DAILY #15 ea 05/02/24 (Lidoderm) methocarbamol 750 mg tablet 750 mg PO Q8H PRN pain #20 tabs 05/02/24 ondansetron 4 mg disintegrating 4 mg PO Q8H PRN nausea and 05/02/24 tablet vomiting 4 days #12 tabs sennosides 8.6 mg capsule (senna) 8.6 mg PO HS PRN constipation #30 05/02/24 caps methocarbamol 750 mg tablet 750 mg PO Q8H PRN muscle spasm #15 05/15/24 tabs Allergies Allergy/AdvReac Type Severity Reaction Status Date / Time No Known Allergies Allergy Verified 05/02/24 16:26 [facility] Disclaimer: The information contained in this section may have been updated after the patient was seen, as this information can be updated by other users. Social History (Updated 05/02/24 @ 23:35 by Devora Cook DO) Smoking Status: Unknown if ever smoked alcohol intake: never current occupational status: employed Travel in the last 8 weeks: None ROS Obtained: Yes Systems reviewed as appropriate & no additional complaints except as documented Physical Exam General General appearance: alert and in no apparent distress Head Head exam: normocephalic and other (Healing laceration left superior scalp. No indy removed however 1 remains embedded in superior portion of prior laceration, wound well-approximated, healing well without noted erythema, no noted fluctuance, no noted drainage) Eye Eye exam: Present normal appearance and EOMI ENT ENT exam: Present normal exam Neck Neck exam: Present normal inspection Chest Chest inspection: Present normal inspection and symmetric chest wall rise Respiratory Respiratory exam: Absent respiratory distress or stridor Cardiovascular Cardiovascular exam: Present regular rate Abdominal Exam Abdominal exam: Absent distention exam: Present deferred Extremities Exam Extremities exam: Present normal inspection and full ROM; Absent tenderness Back Exam Back exam: Present normal inspection Neurological Exam Neurological exam: Present alert and oriented X3 Psychiatric Psychiatric exam: Present normal affect and normal mood Skin Skin exam: Present warm, dry, intact and normal color; Absent rash Medical Decision Making Medical Records Screening: Per USPSTF and CDC recommendations, given the prevalence of disease in our region, it is our hospital?s policy to screen for HIV and viral Hepatitis for all patients aged 18 and over and those with ongoing risk factors. Mac Inquiry Pt receiving controlled substance: No Mac was queried for this patient: No Vital Signs: 05/15/24 14:34 Pulse Rate [Left Radial] 90 Respiratory Rate 18 Blood Pressure [Right Arm] 113/86 Blood Pressure Mean [Right Arm] 95 02 Sat by Pulse Oximetry 95 Orders (Tests/Meds): ED MEDICATIONS Discontinued Medications Generic Name Dose Route Start Last Admin Trade Name Freq PRN Reason Stop Dose Admin Cocaine HCl 1 ml 05/15/24 14:43 Cocaine 4% Topical Soln 4ml Bottle TP 05/15/24 14:44 ONCE ONE Epinephrine HCl 1 mg 05/15/24 14:43 Epinephrine 1 Mg/Ml Ampul TP 05/15/24 14:44 ONCE ONE Lidocaine HCl 1 ml 05/15/24 14:43 Lidocaine 2% Urojet 10ml TP 05/15/24 14:44 ONCE ONE Medical Decision Narrative: Patient with history and exam per above presenting for evaluation of staple removal of scalp laceration, most indy removed by nursing staff however 1 staple unable to be removed by nursing staff due to being embedded during healing process Diagnoses considered include medical evaluation, staple removal, scalp laceration ED workup and treatment included: As above. Topical anesthetic placed. Staple removed at bedside. Labs, imaging deferred. My clinical impression at this time is most consistent with staple removal, medical assessment evaluation. Patient remains hemodynamically stable, well- appearing, no complaints at this time. Refilling patient Robaxin prescription as he has yet to be able to follow-up with orthopedic surgery and is continuing to have back spasms from transverse process fractures. At this time medically clear for discharge with outpatient follow-up. Given instructions to return to ED if symptoms worsen. Patient agreeable with this plan. Discharged home with hemodynamically stable vitals. I discussed my clinical impression with patient and answered all questions. At this time, the evidence for any other entities in the differential is insufficient to warrant any further testing or ED observation. This was explained to the patient. The patient was advised that persistent or worsening symptoms require further evaluation. Critical Care Critical Care Time Critical Care Time: No
[2024-05-15] MEDS: COCAINE 4% TOPICAL SOLN 4ML BOTTLE 1 ML TP (14:50)
[2024-05-15] MEDS: EPINEPHrine 1 MG/ML AMPUL TP (14:50)
[2024-05-15] MEDS: LIDOCAINE 2% UROJET 10ML TP (14:50)
[2024-05-15 15:25] VITALS: BP 115/80; PULSE 88; RESP 18; TEMP 36.7; O2SAT 98
== END 2024-05-15 15:30 | disposition home or self-care (01) ==
PROVIDERS: Emergency Provider Student in an Organized Health Care Education/Training Program; PCP Family Medicine
DX: M62.830 Muscle spasm of back (principal); Z48.02 Encounter for removal of sutures
CPT/HCPCS: 99283; J0171